=== PATIENT | female | born 1995 | race Two or more races ===

== ENCOUNTER 2019-11-08 02:29 | Emergency (ER) | payer OTHER ==
[~2019-11-08] VITALS: Ht 175.3 cm; Wt 64.9 kg
--- NOTE | 2019-11-08 02:45 | NUR ---
RECEIVED PATIENT VIA AMBULANCE. PER REPORT PATIENT WAS [place], NOT USED TO DRINK ALCOHOL. PER PARENTS SHE IS VERY SOBER AND IS THEIR FIRST TIME TO SEE HER THIS DRUNK. +N/V. KEPT ON BED COMFORTABLY. PARENTS AT BEDSIDE. V/S CHECKED. WILL CONTINUE TO MONITOR ACCORDINGLY.
[2019-11-08] MEDS ORDERED: ONDANSETRON HCL/PF 4 MG/2 ML VIAL ONE (02:48)
--- NOTE | 2019-11-08 02:50 | NUR ---
INITIATED IV ACCESS ORDERED. PATIENT ASLEEP, RESPONSIVE TO DEEP PAIN, UNABLE TO KEEP SELF AWAKE. TOLERATED THE PROCEDURE WELL.
[2019-11-08 02:52] LABS: BASOPHILS # (AUTO) 0.1 /CMM (0.0-0.2); BASOPHILS % (AUTO) 0.6 % (0.0-2.0); EOSINOPHILS % (AUTO) 0.2 % (0.0-6.0); HEMATOCRIT 40 % (33-45); HEMOGLOBIN 13.3 g/dL (11.5-14.8); LYMPHOCYTES # (AUTO) 1.5 /CMM (0.8-4.8); LYMPHOCYTES % (AUTO) 14.2 % (20.0-44.0); MEAN CORPUSCULAR HGB CONC 33 g/dl (31.0-36.0); MEAN CORPUSCULAR VOLUME 93 fL (82-100); MONOCYTES # (AUTO) 0.4 /CMM (0.1-1.30); MONOCYTES % (AUTO) 3.9 % (2.0-12.0); NEUTROPHILS # (AUTO) 8.3 /CMM (1.8-8.9); NEUTROPHILS % (AUTO) 81.1 % (43.0-81.0); PLATELET COUNT (AUTO) 267 /CMM (150-450); RED BLOOD CELL COUNT(AUTO) 4.28 MIL/uL (4.0-5.2); WHITE BLOOD COUNT (AUTO) 10.3 K/uL (4.3-11.0)
[2019-11-08 02:55] LABS: CALCIUM, SERUM 8.9 mg/dL (8.5-10.1); CREATININE 0.8 mg/dL (0.6-1.3); POTASSIUM 3.9 mmol/L (3.5-5.1)
[2019-11-08] MEDS ORDERED: ONDANSETRON HCL/PF 4 MG/2 ML VIAL IV ONE (03:00)
[2019-11-08 03:20] LABS: THYROID STIMULATING HORMONE 2.257 uIU/mL (0.358-3.74)
--- NOTE | 2019-11-08 04:06 | NUR ---
PATIENT ASLEEP, EASILY AWAKEN BUT ABLE TO KEEP AWAKE. MD AT BEDSIDE TO EXPLAIN DISCHARGE INSTRUCTIONS GIVEN TO PARENTS. INSTRUCTED TO GO TO ER FOR WORSENING CONDITION OR CALL 911. PARENTS VERBALIZED UNDERSTANDING. SEND TO CAR VIA WHEELCHAIR ACCOMPANIED BY TRACTOR TECHNICIAN. LEAVE THE FACILITY AT THIS TIME.
[2019-11-08 04:11] VITALS: BP 108/73
== END 2019-11-08 04:13 | disposition home or self-care (01) ==
LOC: ER 02:31
DX: F10.129 Alcohol abuse with intoxication, unspecified (principal); E03.9 Hypothyroidism, unspecified; Y90.6 Blood alcohol level of 120-199 mg/100 ml
CPT/HCPCS: 36415; 80048; 80307; 84443; 85025; 96374; 99283; J2405; G0480